=== PATIENT | female | born 1985 | race African-American/Black ===

== ENCOUNTER 2016-12-03 11:02 | Emergency (ER) | payer OTHER ==
[~2016-12-03] VITALS: Ht 180.3 cm; Wt 65.8 kg
[~2016-12-03 11:02] MED LIST: APAP500 PO; BENADRYL25 MG PO; COLACE 100 MG100 MG PO; DERMOPLAST SPRA56 ML; HYDROCORTISONE 01 OZ TP; HYDROCORTISONE30 G9; IBUPROFEN 800800 M1 PO; KETOCONAZOLE60 GM TP; LANOLIN56 GM; MACROBID 100 M100 M1 PO; METHYLERGONOVI0.2 MG PO; PREDNISONE50 MG PO; PRENATAL PO; TUCKS MEDICATE1 EAC1; ULTRAM 50MG TAB50 MG PO
[2016-12-03 11:05] VITALS: BP 128/87
== END 2016-12-03 12:43 | disposition home or self-care (01) ==
LOC: ER 11:02
DX: R06.00 Dyspnea, unspecified (principal); M54.2 Cervicalgia; F10.99 Alcohol use, unspecified with unspecified alcohol-induced disorder; Y04.8XXA Assault by other bodily force, initial encounter; Y93.89 Activity, other specified; Y92.89 Other specified places as the place of occurrence of the external cause; Y99.8 Other external cause status